=== PATIENT | female | born 1995 | race Two or more races ===

== ENCOUNTER 2025-08-27 18:07 | Emergency (ER) | payer OTHER ==
[~2025-08-27] VITALS: Ht 162.6 cm; Wt 54.4 kg
== END 2025-08-27 19:39 | disposition home or self-care (01) ==
LOC: ER 18:07
DX: S01.82XA Laceration with foreign body of other part of head, initial encounter (principal); W22.8XXA Striking against or struck by other objects, initial encounter; Y93.89 Activity, other specified; Y92.018 Other place in single-family (private) house as the place of occurrence of the external cause